=== PATIENT | male | born 1960 | race Caucasian/White ===

== ENCOUNTER 2023-04-28 07:08 | Inpatient (IN) | payer MEDICARE, OTHER ==
[2023-04-28] VITALS (8 sets, daily range): BP systolic 104–152; BP diastolic 66–90; TEMP 97.4–98.5; O2SAT 94–98
[~2023-04-28] VITALS: Ht 182.9 cm; Wt 152.4 kg
[2023-04-28] MEDS ORDERED: ISOVUE-370 76% 100ML VIAL As Ordered ONE (07:19)
[2023-04-28] MEDS ORDERED: ACETAMINOPHEN 325 MG TAB PO ONE (07:30)
[2023-04-28] MEDS ORDERED: NS 1,000 ML IV ONE ×2 (07:30→08:35)
[2023-04-28] MEDS ORDERED: LIDOCAINE 2% 5ML JELLY UROJET TOP ONE (07:30)
[2023-04-28 07:33] LABS: BASO # 0.1 10^3/uL (0.0-0.2); BASO % 0.5 % (0.0-1.0); EOS % 0.2 % (0.0-3.0); HEMATOCRIT 52.5 % (42.0-52.0); HEMOGLOBIN 16.4 g/dl (13.5-17.5); LYMPH # 1.1 10^3/uL (1.5-5.0); LYMPH % 8.3 % (24.0-44.0); MEAN CORPUSCULAR HGB CONC 31.2 g/dl (32.0-36.5); MEAN CORPUSCULAR VOLUME 89.7 fl (80.0-96.0); MONO % 7.5 % (2.0-8.0); NEUTROPHILS % 82.5 % (36.0-66.0); PLATELET COUNT, AUTOMATED 195 10^3/uL (150-450); RED BLOOD COUNT 5.85 10^6/uL (4.30-6.10); WHITE BLOOD COUNT 13.3 10^3/uL (4.0-10.0)
[2023-04-28 07:52] LABS: INR 1.01
[2023-04-28 07:53] LABS: PARTIAL THROMBOPLASTIN TIME 25.1 SECONDS (24.8-34.2)
[2023-04-28 08:05] LABS: ETHYL ALCOHOL (ETHANOL) 0.006 % (0.000-0.010)
[2023-04-28] MEDS ORDERED: HumuLIN R (REGULAR) INSULIN (NovoLIN R) **100U/ML** PER UNIT IV ONE (08:05)
[2023-04-28] MEDS ORDERED: ALBUTEROL SULFATE 2.5MG/0.5ML INH NEB SOLN INH ONE (08:05)
[2023-04-28] MEDS ORDERED: PIPERACILLIN/TAZOBACTAM SOD 4.5 GM in D5W MINI-BAG PLUS 50 ML IV ONE (08:05)
[2023-04-28 08:06] LABS: SALICYLATE LEVEL < 3.0 MG/DL (<30)
[2023-04-28 08:07] LABS: CPK CREATINE PHOSPHOKINASE 174 U/L (46-171)
[2023-04-28] MEDS ORDERED: DEXTROSE 50% 50ML SYRINGE As Ordered ONE (08:15)
[2023-04-28] MEDS ORDERED: DEXTROSE 50% 50ML SYRINGE IV STA (08:16)
[2023-04-28 08:17] LABS: ABG BASE EXCESS -2.7 (-2.0-2.0); ABG HCO3 22.8 MMOL/L (22.0-26.0); ABG O2 SATURATION 97.2 % (95.0-99.0); ABG PARTIAL PRESSURE O2 100.7 mmHg (75.0-100.0); ABG STANDARD HCO3 22.3 MMOL/L. (22.0-26.0); ABG TOTAL CO2 24.1 MMOL/L (23.0-31.0); ABG pH (ARTERIAL) 7.353 UNITS (7.350-7.450)
[2023-04-28 08:23] LABS: DIGOXIN LEVEL 0.6 NG/ML (0.8-2.0)
[2023-04-28 08:32] LABS: RSV AMPLIFICATION NEGATIVE (NEGATIVE)
[2023-04-28] MEDS ORDERED: CALCIUM GLUCONATE 1,000MG/10ML VIAL (100MG/ML) IV ONE (08:35)
[2023-04-28] MEDS ORDERED: PATIROMER SORBITEX CALCIUM 8.4 GM POWDER PACKET (VELTASSA) PO ONE (08:35)
[2023-04-28 08:36] LABS: ALBUMIN 3.7 G/DL (3.2-5.2); ALKALINE PHOSPHATASE 130 U/L (46-116); ALT/SGPT 25 U/L (7.0-40); AST/SGOT 16 U/L (<34); BILIRUBIN,DIRECT 0.5 MG/DL (<0.4); BILIRUBIN,TOTAL 1.2 MG/DL (0.3-1.2); BLOOD UREA NITROGEN 38 MG/DL (9-23); CALCIUM LEVEL 9.7 MG/DL (8.3-10.6); CARBON DIOXIDE LEVEL 24 MMOL/L (20-31); CHLORIDE LEVEL 83 MMOL/L (98-107); CK-MB VALUE MASS 1.3 NG/ML (<3.6); CREATININE FOR GFR 1.29 MG/DL (0.70-1.30); GLOMERULAR FILTRATION RATE 59.7 (>49); GLUCOSE, FASTING 1259 MG/DL (74-106); MB/CK RELATIVE INDEX 0.74 (< OR =4); POTASSIUM SERUM 7.1 MMOL/L (3.5-5.1); SODIUM LEVEL 118 MMOL/L (136-145); THYROID STIMULATING HORMONE 4.473 uIU/ML (0.55-4.78); TOTAL PROTEIN 7.3 G/DL (5.7-8.2)
[2023-04-28 08:41] LABS: AMPHETAMINES LEVEL URINE NEGATIVE (NEGATIVE); BARBITURATES URINE NEGATIVE (NEGATIVE); BENZODIAZEPINES URINE NEGATIVE (NEGATIVE); CANNABINOIDS URINE NEGATIVE (NEGATIVE); COCAINE METABOLITE URINE NEGATIVE (NEGATIVE); METHADONE URINE NEGATIVE (NEGATIVE); OPIATES URINE NEGATIVE (NEGATIVE); PHENCYCLIDINE URINE NEGATIVE (NEGATIVE)
[2023-04-28] MEDS ORDERED: MED REC IN PROGRESS XX SCH (08:45)
[2023-04-28] MEDS ORDERED: INSULIN IV RATE CHANGE DOCUMENTATION ML/HR XX SCH (09:35)
[2023-04-28] MEDS ORDERED: INSULIN REGULAR IN 0.9 % NACL 100 UNIT in IV 1 EA IV SCH ×2 (09:35)
[2023-04-28] MEDS ORDERED: HEPARIN SOD (PORCINE) 5000UNITS/ML 1ML VIAL/SYRINGE SC SCH (09:35)
[2023-04-28 09:55] LABS: CK-MB VALUE MASS 1.1 NG/ML (<3.6); CREATININE FOR GFR 1.29 MG/DL (0.70-1.30); GLOMERULAR FILTRATION RATE 59.7 (>49); MB/CK RELATIVE INDEX 0.61 (< OR =4); POTASSIUM SERUM 5.6 MMOL/L (3.5-5.1)
[2023-04-28] MEDS ORDERED: NS 1,000 ML IV SCH (10:00)
[2023-04-28 10:09] LABS: HEMOGLOBIN A1c > 14.0 % (4.0-6.0)
[2023-04-28] MEDS ORDERED: AMIO200T49 PO (10:21)
[2023-04-28] MEDS ORDERED: ATOR80TA59 PO (10:21)
[2023-04-28] MEDS ORDERED: WARF4TAB51 PO (10:21)
[2023-04-28] MEDS ORDERED: JARD1TAB PO (10:21)
[2023-04-28] MEDS ORDERED: DIGO0.123 PO (10:21)
[2023-04-28] MEDS ORDERED: BUME2TAB3 PO (10:21)
[2023-04-28] MEDS ORDERED: METO1TAB33 PO (10:21)
[2023-04-28] MEDS ORDERED: ENTR1TAB7 PO (10:21)
[2023-04-28] MEDS ORDERED: HOME MED LIST COMPLETE! XX SCH (10:35)
[2023-04-28 10:56] LABS: PHOSPHORUS LEVEL 2.4 MG/DL (2.4-5.1)
[2023-04-28] MEDS: FLUCONAZOLE 100 MG TAB PO SCH (12:32)
[2023-04-28] MEDS: PANTOPRAZOLE 40MG VIAL IV SCH (12:33)
[2023-04-28] MEDS: NYSTATIN 100,000 UNITS/GM TOPICAL PWD 15GM TOP PRN (12:34)
[2023-04-28 12:38] LABS: CALCIUM LEVEL 9.6 MG/DL (8.3-10.6); CREATININE FOR GFR 1.41 MG/DL (0.70-1.30); GLOMERULAR FILTRATION RATE 53.9 (>49); POTASSIUM SERUM 4.7 MMOL/L (3.5-5.1)
[2023-04-28] MEDS ORDERED: GLUCOSE 4GM CHEW TABLET PO PRN (15:50)
[2023-04-28] MEDS ORDERED: GLUCAGON INJ 1MG VIAL SC PRN (15:50)
[2023-04-28] MEDS ORDERED: DEXTROSE 50% 50ML SYRINGE IV PRN (15:50)
[2023-04-28] MEDS ORDERED: D5W/0.45% SODIUM CHLORIDE 1,000 ML IV SCH (16:15)
[2023-04-28] MEDS ORDERED: LEVEMIR (INSULIN DETEMIR) 1 UNITS/0.01ML SC ONE ×3 (16:15→20:00)
[2023-04-28 16:57] LABS: CALCIUM LEVEL 10.5 MG/DL (8.3-10.6); CREATININE FOR GFR 1.56 MG/DL (0.70-1.30); GLOMERULAR FILTRATION RATE 47.9 (>49); POTASSIUM SERUM 4.2 MMOL/L (3.5-5.1)
[2023-04-28] MEDS: INSULIN LISPRO (NovoLOG) PER UNIT SC SCH ×3 (18:13→20:23)
[2023-04-28] MEDS: NS 1,000 ML IV SCH ×2 (18:34→23:34)
[2023-04-28] MEDS: METOPROLOL SUCC (TopROL XL) 100MG *XL* TAB PO SCH (20:24)
[2023-04-28 20:58] LABS: CALCIUM LEVEL 9.8 MG/DL (8.3-10.6); CREATININE FOR GFR 1.42 MG/DL (0.70-1.30); GLOMERULAR FILTRATION RATE 53.4 (>49); POTASSIUM SERUM 3.9 MMOL/L (3.5-5.1)
[2023-04-29 00:32] LABS: BLOOD UREA NITROGEN 33 MG/DL (9-23); CALCIUM LEVEL 8.5 MG/DL (8.3-10.6); CARBON DIOXIDE LEVEL 25 MMOL/L (20-31); CHLORIDE LEVEL 104 MMOL/L (98-107); GLOMERULAR FILTRATION RATE > 60.0 (>49); GLUCOSE, FASTING 234 MG/DL (74-106); POTASSIUM SERUM 3.5 MMOL/L (3.5-5.1); SODIUM LEVEL 137 MMOL/L (136-145)
[2023-04-29 03:52] VITALS: BP 165/84; TEMP 97.4; O2SAT 98
[2023-04-29] MEDS: NS 1,000 ML IV SCH (04:40)
[2023-04-29 04:58] LABS: BASO # 0.1 10^3/uL (0.0-0.2); BASO % 0.6 % (0.0-1.0); EOS # 0.2 10^3/uL (0.0-0.5); EOS % 2.1 % (0.0-3.0); HEMOGLOBIN 15.1 g/dl (13.5-17.5); LYMPH # 1.8 10^3/uL (1.5-5.0); LYMPH % 17.7 % (24.0-44.0); MEAN CORPUSCULAR HEMOGLOBIN 27.9 pg (27.0-33.0); MEAN CORPUSCULAR HGB CONC 32.1 g/dl (32.0-36.5); MEAN CORPUSCULAR VOLUME 86.7 fl (80.0-96.0); MONO # 0.8 10^3/uL (0.0-0.8); MONO % 7.8 % (2.0-8.0); NEUTROPHILS # 7.3 10^3/uL (1.5-8.5); NEUTROPHILS % 70.8 % (36.0-66.0); PLATELET COUNT, AUTOMATED 160 10^3/uL (150-450); RED BLOOD COUNT 5.42 10^6/uL (4.30-6.10); WHITE BLOOD COUNT 10.3 10^3/uL (4.0-10.0)
[2023-04-29 05:15] LABS: INR 1.05; PROTHROMBIN TIME 13.4 SECONDS (12.5-14.5)
[2023-04-29 05:31] LABS: BLOOD UREA NITROGEN 33 MG/DL (9-23); CALCIUM LEVEL 8.4 MG/DL (8.3-10.6); CARBON DIOXIDE LEVEL 24 MMOL/L (20-31); CHLORIDE LEVEL 103 MMOL/L (98-107); CREATININE FOR GFR 1.25 MG/DL (0.70-1.30); GLOMERULAR FILTRATION RATE > 60.0 (>49); GLUCOSE, FASTING 330 MG/DL (74-106); MAGNESIUM LEVEL 2.2 MG/DL (1.8-2.4); POTASSIUM SERUM 4.1 MMOL/L (3.5-5.1); SODIUM LEVEL 136 MMOL/L (136-145)
[2023-04-29 08:00] VITALS: BP 132/76; TEMP 97.5; O2SAT 96
[2023-04-29] MEDS: INSULIN LISPRO (NovoLOG) PER UNIT SC SCH ×7 (08:35→20:36)
[2023-04-29] MEDS: AMIODARONE 200 MG TAB (PACERONE) PO SCH (08:37)
[2023-04-29] MEDS: LEVEMIR (INSULIN DETEMIR) 1 UNITS/0.01ML SC SCH ×2 (08:37→20:36)
[2023-04-29] MEDS: METOPROLOL SUCC (TopROL XL) 100MG *XL* TAB PO SCH ×2 (08:38→20:36)
[2023-04-29] MEDS: DIGOXIN 0.125 MG TAB PO SCH (08:39)
[2023-04-29] MEDS: ATORVASTATIN 20 MG TAB PO SCH (08:39)
[2023-04-29] MEDS: NYSTATIN 100,000 UNITS/GM TOPICAL PWD 15GM TOP PRN (08:40)
[2023-04-29] MEDS: FLUCONAZOLE 100 MG TAB PO SCH (08:40)
[2023-04-29] MEDS: PANTOPRAZOLE 40MG VIAL IV SCH (08:46)
[2023-04-29] MEDS ORDERED: BUMETANIDE 1 MG TAB PO SCH (09:00)
[2023-04-29] MEDS: ENTRESTO 49-51MG TABLET (SACUBITRIL/VALSARTAN) PO SCH ×2 (10:47→20:35)
[2023-04-29 16:00] VITALS: BP 128/79; TEMP 97.4; O2SAT 94
[2023-04-29] MEDS: WARFARIN SOD 2MG TAB PO SCH (17:02)
[2023-04-29 18:54] VITALS: BP 142/79; TEMP 97.1; O2SAT 96
[2023-04-30 06:00] VITALS: BP 146/92; TEMP 97.1; O2SAT 98
[2023-04-30 06:33] LABS: BASO # 0.1 10^3/uL (0.0-0.2); BASO % 0.7 % (0.0-1.0); EOS # 0.2 10^3/uL (0.0-0.5); EOS % 2.4 % (0.0-3.0); HEMATOCRIT 46.2 % (42.0-52.0); LYMPH # 1.5 10^3/uL (1.5-5.0); LYMPH % 19.7 % (24.0-44.0); MEAN CORPUSCULAR HEMOGLOBIN 28.4 pg (27.0-33.0); MEAN CORPUSCULAR HGB CONC 32.5 g/dl (32.0-36.5); MEAN CORPUSCULAR VOLUME 87.3 fl (80.0-96.0); MONO # 0.5 10^3/uL (0.0-0.8); MONO % 6.4 % (2.0-8.0); NEUTROPHILS # 5.1 10^3/uL (1.5-8.5); NEUTROPHILS % 69.8 % (36.0-66.0); PLATELET COUNT, AUTOMATED 153 10^3/uL (150-450); RED BLOOD COUNT 5.29 10^6/uL (4.30-6.10); WHITE BLOOD COUNT 7.4 10^3/uL (4.0-10.0)
[2023-04-30 08:05] LABS: BLOOD UREA NITROGEN 20 MG/DL (9-23); CALCIUM LEVEL 8.3 MG/DL (8.3-10.6); CARBON DIOXIDE LEVEL 25 MMOL/L (20-31); CHLORIDE LEVEL 106 MMOL/L (98-107); CREATININE FOR GFR 0.86 MG/DL (0.70-1.30); GLOMERULAR FILTRATION RATE > 60.0 (>49); GLUCOSE, FASTING 205 MG/DL (74-106); POTASSIUM SERUM 4.5 MMOL/L (3.5-5.1); SODIUM LEVEL 138 MMOL/L (136-145)
[2023-04-30] MEDS: AMIODARONE 200 MG TAB (PACERONE) PO SCH (08:48)
[2023-04-30] MEDS: ATORVASTATIN 20 MG TAB PO SCH (08:48)
[2023-04-30] MEDS: METOPROLOL SUCC (TopROL XL) 100MG *XL* TAB PO SCH ×2 (08:49→20:46)
[2023-04-30] MEDS: ENTRESTO 49-51MG TABLET (SACUBITRIL/VALSARTAN) PO SCH ×2 (08:50→20:46)
[2023-04-30] MEDS: DIGOXIN 0.125 MG TAB PO SCH (08:50)
[2023-04-30] MEDS: INSULIN LISPRO (NovoLOG) PER UNIT SC SCH ×6 (08:51→20:38)
[2023-04-30] MEDS: LEVEMIR (INSULIN DETEMIR) 1 UNITS/0.01ML SC SCH ×2 (09:19→20:46)
[2023-04-30] MEDS: PANTOPRAZOLE 40MG VIAL IV SCH (09:19)
[2023-04-30 14:04] VITALS: BP 148/68; TEMP 97.2; O2SAT 95
[2023-04-30] MEDS ORDERED: HumuLIN R (REGULAR) INSULIN (NovoLIN R) **100U/ML** PER UNIT IV STA (16:21)
[2023-04-30] MEDS ORDERED: INSULIN LISPRO (NovoLOG) PER UNIT SC SCH (17:30)
[2023-04-30] MEDS: WARFARIN SOD 2MG TAB PO SCH (17:34)
[2023-04-30 20:00] VITALS: BP 116/61; TEMP 97.6; O2SAT 95
[2023-04-30 20:46] VITALS: BP 116/61
[2023-05-01 04:32] VITALS: BP 136/82; TEMP 97.1; O2SAT 95
[2023-05-01 06:00] LABS: BASO # 0.1 10^3/uL (0.0-0.2); EOS # 0.2 10^3/uL (0.0-0.5); EOS % 3.1 % (0.0-3.0); HEMATOCRIT 45.8 % (42.0-52.0); HEMOGLOBIN 14.8 g/dl (13.5-17.5); LYMPH # 1.2 10^3/uL (1.5-5.0); LYMPH % 25.7 % (24.0-44.0); MEAN CORPUSCULAR HEMOGLOBIN 28.4 pg (27.0-33.0); MEAN CORPUSCULAR HGB CONC 32.3 g/dl (32.0-36.5); MEAN CORPUSCULAR VOLUME 87.7 fl (80.0-96.0); MONO # 0.4 10^3/uL (0.0-0.8); MONO % 8.1 % (2.0-8.0); NEUTROPHILS # 2.9 10^3/uL (1.5-8.5); NEUTROPHILS % 59.6 % (36.0-66.0); PLATELET COUNT, AUTOMATED 158 10^3/uL (150-450); RED BLOOD COUNT 5.22 10^6/uL (4.30-6.10); WHITE BLOOD COUNT 4.8 10^3/uL (4.0-10.0)
[2023-05-01] MEDS ORDERED: LEVEMIR (INSULIN DETEMIR) 1 UNITS/0.01ML SC SCH (09:00)
[2023-05-01] MEDS: INSULIN LISPRO (NovoLOG) PER UNIT SC SCH ×4 (09:27→12:57)
[2023-05-01] MEDS: PANTOPRAZOLE 40MG VIAL IV SCH (09:28)
[2023-05-01] MEDS: ATORVASTATIN 20 MG TAB PO SCH (09:28)
[2023-05-01] MEDS: ENTRESTO 49-51MG TABLET (SACUBITRIL/VALSARTAN) PO SCH (09:28)
[2023-05-01] MEDS: DIGOXIN 0.125 MG TAB PO SCH (09:29)
[2023-05-01] MEDS: AMIODARONE 200 MG TAB (PACERONE) PO SCH (09:29)
[2023-05-01] MEDS: METOPROLOL SUCC (TopROL XL) 100MG *XL* TAB PO SCH (09:29)
[2023-05-01] MEDS ORDERED: INSUHUMDS SC ×2 (12:11→12:44)
[2023-05-01] MEDS ORDERED: INSUDET SC ×2 (12:11→12:44)
[2023-05-01] MEDS ORDERED: BLOO-76 MC ×2 (12:14→12:46)
[2023-05-01] MEDS ORDERED: BD I1MIS14 SC (12:16)
[2023-05-01] MEDS ORDERED: HumuLIN R (REGULAR) INSULIN (NovoLIN R) **100U/ML** PER UNIT IV STA (12:40)
[2023-05-01] MEDS ORDERED: [UNRECOGNIZED DRUG - CODE] XX (12:46)
[2023-05-02] MEDS ORDERED: FLUCONAZOLE 50MG TABLET PO SCH (09:00)
== END 2023-05-01 15:30 | disposition home or self-care (01) | DRG 637 ==
LOC: EDBD 07:08 → M ED 07:08 → M ED INP 09:34 → ENRESERV 10:12 → M ICU 10:52 → M MS4PR 04-29 18:52
PROVIDERS: ADMIT Internal Medicine Pulmonary Disease; ATTEND Student in an Organized Health Care Education/Training Program
DX: E11.00 Type 2 diabetes mellitus with hyperosmolarity without nonketotic hyperglycemic-hyperosmolar coma (NKHHC) (principal); G93.41 Metabolic encephalopathy; Z68.42 Body mass index [BMI] 45.0-49.9, adult; E72.20 Disorder of urea cycle metabolism, unspecified; E87.1 Hypo-osmolality and hyponatremia; E87.20 Acidosis, unspecified; I48.91 Unspecified atrial fibrillation; I50.9 Heart failure, unspecified; I11.0 Hypertensive heart disease with heart failure; I51.9 Heart disease, unspecified; B37.9 Candidiasis, unspecified; F17.220 Nicotine dependence, chewing tobacco, uncomplicated; E66.01 Morbid (severe) obesity due to excess calories; E87.5 Hyperkalemia; G47.33 Obstructive sleep apnea (adult) (pediatric); Z79.01 Long term (current) use of anticoagulants; Z95.0 Presence of cardiac pacemaker; Z79.84 Long term (current) use of oral hypoglycemic drugs; L08.9 Local infection of the skin and subcutaneous tissue, unspecified